=== PATIENT | male | born 1970 | race Caucasian/White ===

== ENCOUNTER 2021-10-27 12:26 | Emergency (ER) | payer OTHER, SELFPAY ==
[2021-10-27 12:34] VITALS: BP 121/75; PULSE 75; RESP 16; TEMP 36.6; O2SAT 99
--- NOTE | 2021-10-27 12:34 | ED.EYEPROB ---
HPI - Eye Problem General Chief complaint: Eye Problems Stated complaint: fb in right eye Time Seen by Provider: 10/27/21 12:34 Source: patient and RN notes reviewed History of Present Illness HPI Narrative: Patient is a 51-year-old male who presents the urgent care with complaints of possible foreign body to the right eye. Patient states approximately an hour and a half ago he was on a metal 10 roof and believes he got a piece of metal in his eye. Patient has attempted to flush the eye. Denies of any vision changes. Patient has had Lasix done in the past but does not wear contacts or glasses. Patient was wearing safety glasses. No other acute complaints. No acute distress noted. Patient aware of the plan of care. Some parts of this dictation were generated by voice recognition software and may contain typographical and/or grammatical inaccuracies. Related Data Home Medications Medication Instructions Recorded Confirmed No Home Medications 10/27/21 10/27/21 Allergies Allergy/AdvReac Type Severity Reaction Status Date / Time No Known Allergies Allergy Mild Verified 01/27/11 15:13 Review of Systems Review of Systems: CONSTITUTIONAL: Denies fever, chills, or sweats. EYES: Denies visual changes, redness, or discharge. Reports of foreign body to the right eye ENT: Denies rhinorrhea, congestion, sore throat, or otalgia. CARDIOVASCULAR: Denies chest pain, palpitations, or edema. RESPIRATORY: Denies cough or dyspnea. GASTROINTESTINAL: Denies abdominal pain, nausea, vomiting, or diarrhea. GENITOURINARY: Denies dysuria or hematuria. SKIN: Denies rash or itching. MUSCULOSKELETAL: Denies back pain, joint pain, or myalgia. NEUROLOGIC: Denies headache, numbness, or weakness. All other systems reviewed are negative, except as documented in HPI. PMFSH Comments At the time of my signature, I reviewed and agree with the nursing past medical, surgical, social, and family history. There is no relevant family history pertinent to the patient complaint. Exam Narrative: GENERAL: This is a well-nourished, well-developed patient, in no apparent distress. HEAD: normocephalic, atraumatic. EYES: PERRL. Sclera clear/white. Vision is grossly intact. Direct visualization of it likely foreign body to the right eye. No penetrating injury noted EARS: External ears normal NOSE: External nose normal with no obvious nasal discharge, nares without redness, no rhinorrhea. THROAT: Mucous membranes moist NECK: Neck supple SKIN: warm, intact with no suspicious lesions or rash, good texture and turgor. NEURO: awake, alert, and oriented to person, place and time. There were no obvious focal neurologic abnormalities. EXTREMITIES: No clubbing, cyanosis, or edema. Course Course Level of Care: Express Care Visit Vital Signs Vital signs: Vital Signs Temperature 97.9 F 10/27/21 12:34 Pulse Rate 75 10/27/21 12:34 Respiratory Rate 16 10/27/21 12:34 Blood Pressure 121/75 10/27/21 12:34 Pulse Oximetry 99 10/27/21 12:34 Temperature 97.9 F 10/27/21 12:34 Pulse Rate 75 10/27/21 12:34 Respiratory Rate 16 10/27/21 12:34 Blood Pressure 121/75 10/27/21 12:34 Pulse Oximetry 99 10/27/21 12:34 Reviewed Procedures FB Removal Eye Foreign Body #1: Location: eye (R) Topical anesthetic used: tetracaine Foreign body: metal Evidence of corneal penetration: No Technique: irrigation and cotton tip swab Procedure performed under: direct visualization with magnification Patient tolerated procedure: well and no complications Foreign Body Removal Narrative: Notable corneal abrasion at 3:00 and 8:00. Mild injected sclera to the right. 2 drops of tetracaine were used post eyewash. Fluorescein used. Eyewash status post procedure. Foreign body removed with direct visualization and cotton swab. Patient tolerated well. No complications. MDM - Eye Problem MDM Narrative Medical decisio
== END 2021-10-27 13:05 | disposition home or self-care (01) ==
PROVIDERS: Emergency Provider Nurse Practitioner Family
DX: T15.11XA Foreign body in conjunctival sac, right eye, initial encounter (principal); X58.XXXA Exposure to other specified factors, initial encounter
CPT/HCPCS: 65205; 99213; A9270; G0463